=== PATIENT | male | born 1990 | race Caucasian/White ===

== ENCOUNTER 2024-09-20 01:52 | Emergency (ER) | payer BC, OTHER ==
[~2024-09-20] VITALS: Ht 182.9 cm; Wt 113.4 kg
[~2024-09-20 01:52] MED LIST: ACETAMINOPHEN-1 EAC4 PO; ACETAMINOPHEN650 MG PR; COLACE100 M1 PO; ONDANSETRON ODT4 MG PO
[2024-09-20 01:56] VITALS: PULSE 70; RESP 16; TEMP 98
[2024-09-20] MEDS: SODIUM CHLORIDE 0.9% 1000ML 1,000 ML IV STA (02:09)
[2024-09-20] MEDS: ONDANSETRON HCL INJ 2MG/ML 2ML 2 MG/ML VIAL IV STA (02:09)
[2024-09-20] MEDS: KETOROLAC TROMETHAMINE 30 MG/ML VIAL IV STA ×2 (02:10→04:27)
[2024-09-20 02:22] LABS: BASOPHILS # (AUTO) 0.1 (0.0-0.1); BASOPHILS % 0.6 % (0.0-1.0); EOSINOPHILS # (AUTO) 0.3 (0.0-0.4); EOSINOPHILS % 3.2 % (0.0-6.0); HEMOGLOBIN 14.6 g/dL (14.0-18.0); LYMPHOCYTES % 20.5 % (18.0-39.1); MEAN CORPUSCULAR HEMOGLOBIN 29.9 pg (28-32); MEAN CORPUSCULAR HGB CONC 32.4 g/dL (31-35); MONOCYTES # (AUTO) 0.7 (0.2-0.8); MONOCYTES % 6.9 % (4.4-11.3); NEUTROPHILS # (AUTO) 6.8 (2.1-6.9); NEUTROPHILS % 68.3 % (38.7-80.0); PLATELET COUNT 288 x10e3/uL (140-360); RED BLOOD COUNT 4.89 x10e6/uL (4.3-5.7); RED CELL DISTRIBUTION WIDTH 13.9 % (11.7-14.4); WHITE BLOOD COUNT 9.95 x10e3/uL (4.8-10.8)
[2024-09-20 02:36] LABS: ALBUMIN 4.1 g/dL (3.5-5.0); ALBUMIN/GLOBULIN RATIO 1.3 (0.8-2.0); ANION GAP 17.4 mmol/L (8-16); BILIRUBIN,TOTAL 0.7 mg/dL (0.2-1.2); CALCIUM 9.8 mg/dL (8.4-10.2); CREATININE, SERUM 1.57 mg/dL (0.72-1.25); POTASSIUM 4.4 mmol/L (3.5-5.1); TOTAL PROTEIN 7.3 g/dL (6.5-8.1)
[2024-09-20 02:57] LABS: CLARITY,URINE CLOUDY (CLEAR); COLOR,URINE STRAW (YELLOW); GLUCOSE, URINE NEGATIVE (NEGATIVE); KETONES,URINE NEGATIVE (NEGATIVE); LEUKOCYTE ESTERASE ,URINE NEGATIVE (NEGATIVE); NITRITE,URINE NEGATIVE (NEGATIVE); PH,URINE 7 (5 - 7); PROTEIN,URINE DIPSTICK 1+ (NEGATIVE); URINE UROBILINOGEN 0.2 mg/dL (0.2 - 1)
[2024-09-20 02:58] LABS: BACTERIA,URINE MODERATE /HPF; BILIRUBIN,URINE NEGATIVE (NEGATIVE); EPITHELIAL CELLS,URINE MODERATE /LPF; RBC,URINE >50 /HPF (0-5)
[2024-09-20] MEDS ORDERED: SODIUM CHLORIDE 0.9% 1000ML 1,000 ML IV SCH (04:00)
[2024-09-20] MEDS ORDERED: Morphine 4mg INJECTION 4 MG/ML INJ IV PRN (04:00)
[2024-09-20] MEDS ORDERED: KETOROLAC TROMETHAMINE 30 MG/ML VIAL IV PRN (04:00)
[2024-09-20] MEDS ORDERED: ONDANSETRON HCL INJ 2MG/ML 2ML 2 MG/ML VIAL IV PRN (04:00)
[2024-09-20] MEDS ORDERED: KETOROLAC TROME10 MG PO (04:19)
[2024-09-20] MEDS ORDERED: ONDANSETRON ODT4 MG PO (04:19)
[2024-09-20] MEDS ORDERED: ULTRAM 50MG50 MG PO (04:19)
[2024-09-20 04:22] VITALS: BP 132/89; PULSE 74; RESP 22; TEMP 98.3; O2SAT 95
[2024-09-20] MEDS ORDERED: FLOMAX0.4 MG PO (04:25)
[2024-09-20] MEDS ORDERED: CIPRO500 MG PO (17:57)
== END 2024-09-20 04:30 | disposition home or self-care (01) ==
LOC: ER 02:03 → UNDOADMIN 03:59 → ERHOLD 03:59 → ER 04:30
DX: R10.30 Lower abdominal pain, unspecified (principal); N13.2 Hydronephrosis with renal and ureteral calculous obstruction; N28.9 Disorder of kidney and ureter, unspecified; R11.2 Nausea with vomiting, unspecified
CPT/HCPCS: 36415; 74176; 80053; 81001; 83690; 85025; 99284; J1885; J2405; J7030